=== PATIENT | female | born 1980 | race Caucasian/White ===

== ENCOUNTER → 2017-03-22 | Day surgery (SDC) | payer OTHER ==
[~2017-03-22] MED LIST: DOXYCYCLINE HYCLATE 100 MG CAP/TAB PO ONE; MIDAZOLAM 2 MG/2 ML VIAL ONE; NALOXONE HCL 0.4 MG/ML INJ IVP PRN; ONDANSETRON 4 MG/2 ML VIAL IVP PRN; PROPOFOL/EMULSION 500 MG/50 ML BOTTLE IV ONE; fentaNYL 100 MCG/2 ML INJ IVP PRN; fentaNYL 100 MCG/2 ML INJ ONE
--- NOTE | 2017-03-22 09:49 | GHP ---
[f rep st] HISTORY AND PHYSICAL DATE OF ADMISSION: 03/22/2017 HISTORY OF PRESENT ILLNESS: The patient is a 36-year-old 1, para 0, A1 who comes into Labor and Delivery today for a D and C. The patient was seen initially on 03/14/2017 for an ultrasound for viability with an LMP of 2016. On that ultrasound was 1 fetus, a positive yolk sac, positive gestational sac with no cardiac activity, probable missed AB. Beta quants were requested and the first one was 62,000, the second one was 54,000, 48 hours apart. On 03/16, the patient requested West Nile virus testing that was negative. The patient had just been exposed to multiple mosquito bites and even though the process was explained the patient requested testing. On 2016 the patient called and requested a D and C, and that was scheduled at patient's request. It was also requested the patient go and get a blood type to see if RhoGAM was necessary and patient chose not to do those labs until the D and C, on 03/22/2017. PAST MEDICAL HISTORY: Benign. PAST SURGICAL HISTORY: Benign. OB HISTORY: No previous history. MEDICATIONS: The patient was AMA, had been taking vitamins. Denies other medications. GYNECOLOGICAL HISTORY: Noncontributory. Family history: Non- contributory PHYSICAL ASSESSMENT: GENERAL: The patient is awake, alert, oriented x3. LUNGS : Clear bilaterally. ABDOMEN: Bowel sounds are positive in all 4 quadrants. EXTREMITIES: DTRs are 1+ bilaterally. Homans sign is negative bilaterally. LABORATORY DATA: At this time, a type and screen, as well as a CBC was requested on admission. IV was begun. ALLERGIES: The patient is not allergic to any medications. PLAN OF CARE: D and C today, on 03/22/2017. Risks, benefits and alternatives were discussed by Dr. Julianna Shoemaker. /[id number]/MODL MTDD
--- NOTE | 2017-03-22 10:17 | PDANEPAE ---
ANE History of Present Illness 36 yo for d &c for missed ab ANE Past Medical History - Cardiovascular History Hx Hypertension: No Hx Arrhythmias: No Hx Chest Pain: No Hx Coronary Artery / Peripheral Vascular Disease: No Hx CHF / Valvular Disease: No Hx Palpitations: No - Pulmonary History Hx COPD: No Hx Asthma/Reactive Airway Disease: No Hx Recent Upper Respiratory Infection: No Hx Oxygen in Use at Home: No Hx Sleep Apnea: No ANE Review of Systems - Exercise capacity METS (RN): 4 METS ANE Patient History - Allergies Allergies/Adverse Reactions: prednisone Allergy (Verified 03/22/17 08:48) - Home Medications Home medications: home medication list seen and reviewed - NPO status NPO Status: no food or drink >8 hours - Anes Hx Anes Hx: no prior problems - Smoking Hx Smoking Status: Never smoked ANE Labs/Vital Signs - Vital Signs Height: 5 ft 7 in Weight: 61.235 kg ANE Physical Exam - Airway Neck exam: FROM Mallampati Score: Class 2 Mouth exam: normal dental/mouth exam - Pulmonary Pulmonary: no respiratory distress - Cardiovascular Cardiovascular: regular rate and rhythym ANE Anesthesia Plan Anesthesia Plan: MAC
--- NOTE | 2017-03-22 11:04 | POSTANESTH ---
Post Anesthetic Evaluation Cardiovascular Status: Normal, Stable Respiratory Status: Normal, Stable Level of Consciousness/Mental Status: Can Participate in Eval Pain Control: Adequate, Prn Tx Ordered Nausea/Vomiting Control: Adequate, Prn Tx Ordered Complications Possibly Related to Anesthesia: None Noted
--- NOTE | 2017-03-22 12:55 | GOP ---
[f rep st] OPERATIVE REPORT DATE OF OPERATION: 03/22/2017 SURGEON: Julianna Shoemaker DO PRESSING MACHINE OPERATOR: None. ANESTHESIA: LMA. ANESTHESIOLOGIST: Oralia Chawla MD PREOPERATIVE DIAGNOSIS: Missed AB at 7 weeks. POSTOPERATIVE DIAGNOSIS: Missed AB at 7 weeks. PROCEDURE PERFORMED: Suction dilatation and curettage. FINDINGS: Uterus sounded to 9 cm. Os was closed. No active bleeding noted. Dilated up to a #8.5 Hegar. Curved 8 mm suction curette was used. Moderate amount of POCs noted. No bleeding noted at the end of the procedure. The patient is O positive. No RhoGAM needed. SPECIMENS: Products of conception. ESTIMATED BLOOD LOSS: 50 cc. INDICATIONS: Patient is a 36-year-old, 1, para 0, who presented to the office for a viability ultrasound. Ultrasound revealed an intrauterine at 7 weeks and 4 days with no cardiac activity noted. Patient denies any vaginal bleeding; however, she did wake up this morning with some lower abdominal cramping. Patient was given condolences in the office and again today. Discussed treatment options with conservative treatment versus medical management versus surgical management. The patient desires a suction D and C at this time. Surgical consents were obtained at bedside. Risks, benefits, and alternatives are reviewed with the patient, including (but not limited to) bleeding, infection, and risk of uterine perforation. Patient understands all risks at this time wants to proceed with surgery. DESCRIPTION OF PROCEDURE: Patient was taken to the operating room where anesthesia was obtained without difficulty. She was positioned in dorsal lithotomy position and prepped and draped in normal sterile fashion. An open- sided speculum was placed in the vagina. Anterior lip of the cervix was grasped with an Allis clamp. The patient was then dilated with a Hegar dilator to allow passage of the sound. Patient was then gently sounded to 9 cm and then dilated up to a #8.5 Hegar. Then a curved 8 mm suction curette was used, connected to suction, and placed in the cervix up to the uterus, and suction curettage was performed. Multiple passes were done to remove any products of . Next, a sharp curettage was performed, obtaining only a small amount of tissue. This was performed until a gritty texture was noted in all 4 quadrants of the uterus. We then inserted the suction curette one last time to remove any remaining products of conception. After the procedure, ultrasound was done and did visualize the uterus that was empty; all products of conception were removed. All instruments were removed from the vagina. Hemostasis was noted. The patient was given doxycycline orally prior to the procedure and will receive again in the PACU. Patient tolerated the procedure well. No complications. Pt was awakened, taken out of dorsal lithotomy position and sent to PACU in stable condiiton. IV FLUIDS: 1 L of LR. URINE OUTPUT: Patient emptied bladder prior to the procedure. COMPLICATIONS: None. COUNTS: Instrument and sponge count correct x2. DISPOSITION: Patient was then taken out of dorsal lithotomy position, awakened , and taken to PACU in stable condition. SPECIMENS: Products of conception. /[id number]/MODL MTDD
== END | disposition home or self-care (01) ==
LOC: FOBOP 07:30
PROVIDERS: ATTEND Obstetrics & Gynecology
PROC: 10D17ZZ Extraction of Products of Conception, Retained, Via Natural or Artificial Opening (ICD-10-PCS; principal; 2017-03-22)
DX: O02.1 Missed abortion (principal)
CPT/HCPCS: J2250; J2704; J3010

== ENCOUNTER → 2017-10-30 | Outpatient (CLI) | payer OTHER | LOC: FIMAGING 13:58 | PROVIDERS: ATTEND Advanced Practice Midwife | DX: O09.522 Supervision of elderly multigravida, second trimester (principal); O36.62X0 Maternal care for excessive fetal growth, second trimester, not applicable or unspecified; Z3A.20 20 weeks gestation of pregnancy ==